=== PATIENT | male | born 1970 | race Caucasian/White ===

== ENCOUNTER 2018-12-31 21:45 | Emergency (ER) | payer OTHER ==
[~2018-12-31 21:45] MED LIST: ACETAMINOPHEN-1 EAC1 PO; GENTAK 3 MG/M3 MG/M1 OP; IBUPROFEN 200200 M1 PO; NAPHCON-A EYE D15 ML OP; ROVIN-CF OF TA1 EACH PO
== END 2018-12-31 22:25 ==
LOC: M.ERS 21:45
DX: Z53.21 Procedure and treatment not carried out due to patient leaving prior to being seen by health care provider (principal)